=== PATIENT | female | born 1930 | race Caucasian/White ===

== ENCOUNTER 2017-10-09 15:48 | Inpatient (IN) | payer MEDICARE, OTHER ==
[2017-10-09] MEDS ORDERED: Carbidopa/Levodopa 25-100 MG Tab.ER PO PRN (16:17)
[2017-10-09] MEDS: Dextrose 5%-0.45% NaCl 1,000 ML IV SCH (17:00)
[2017-10-09 17:14] LABS: CHLORIDE,CL 106 mmol/L (98-115); SODIUM,NA 142 mmol/L (136-145)
[2017-10-09] MEDS: Carbidopa/Levodopa 25-100 MG Tab.ER PO SCH (20:32)
[2017-10-10] MEDS: Dextrose 5%-0.45% NaCl 1,000 ML IV SCH (03:00)
[2017-10-10] MEDS: Carbidopa/Levodopa 25-100 MG Tab.ER PO SCH ×3 (09:17→18:17)
[2017-10-10] MEDS: Enoxaparin 40 MG/0.4 ML Syringe SUBCUT SCH (10:50)
--- NOTE | 2017-10-10 10:51 | PN ---
10/10/2017 PATIENT NAME: ETHAN SELLERS HISTORY: This 87-year-old female who was recently removed by her family from a long-term care center and lived at home. Was seen by a [facility] provider, ANDRES Escobedo. Yesterday, the son had brought her in due to severe weakness, significant change in her overall condition. [facility] provider had actually seen Ms. Sellers about 5 days prior for [id number] due to a wheelchair for in-home use due to significant problems ambulating. The patient does have significant Parkinson disease. It was noted in the clinic that she does have a rash in her right leg into her groin, inner thigh or leg, which was treated for herpes zoster. Son and the family stated that she had just basically stopped eating and drinking 24 hours prior to her admission. The patient does have a sister who and a which was a couple of days ago. She came into the clinic. She was extremely lethargic. She was actually speaking at that time. She stated she just did not feel well. She looked quite weak with a weak voice, unable to stand, drooling and postural changes, however, no signs and symptoms of a stroke. Denied any increase in pain. No nausea or vomiting. Significant hypothermia on admission with a weakened pulse and it was difficult to actually get a blood pressure reading. She was subsequently transferred by ambulance to [facility] for further evaluation, labs, IV fluids, and warming methods. LABS: The patient's white count is 2.5, hemoglobin 14.6, hematocrit 44.8, platelets 77,000, neutrophilia approximately 75%. Sodium 142, potassium 5.2, BUN 31 with a creatinine 0.78, GFR greater than 60, glucose 90, calcium 9.4, AST slightly elevated at 40, alkaline phosphatase slightly elevated at 127, ALT 21, normal albumin at 3.04. Urinary: Slightly cloudy, small amount of occult blood, many bacteria, up to 20 wbc's. Rasheed catheter was placed. She was started on fluid that on a maintenance solution of D5 and half. PHYSICAL EXAMINATION: VITAL SIGNS: Temperature has improved, however, still low 96.8, on admission it was 86.2. Heart rate 57, blood pressure 110/67, O2 at room air 92%. No oral intake. However, total intake through IV is 1300 in and 1000 out. GENERAL: The patient in a semi-Max position. She is not alert this morning. However, purposeful movement. CV: Bradycardia with a regular rhythm. LUNGS: Clear to auscultation. ABDOMEN: Good bowel tones. NEURO: Essential tremor in her right 4th and 5th digits of her hand. INTEGUMENTARY: Scabbed area appears herpes zoster, inner aspect of her right leg up to her groin. No weeping wounds. GENITOURINARY: Rasheed catheter draining clear yellow urine, however, small amount. IMPRESSION/PLAN: 1. Hypothermia, improved, mild. Continue with warming methods such as IV fluids and warm blankets. 2. Dehydration. Change fluids to D5 normal saline. Continue at 100 mL an hour. 3. Parkinson disease. Change her Sinemet from p.o. to IV and so she is taking orals. 4. Weakness, profound, likely will have to return back to long-term care versus home placement. Will need nutrition. We will encourage p.o. upon more alert status. /[id number]/MODL
[2017-10-10] MEDS: cefTRIAXone 1 GM Vial IVPUSH SCH (11:21)
[2017-10-10] MEDS: Dextrose 5%-0.9% NaCl 1,000 ML IV SCH ×2 (13:09→22:47)
[2017-10-11 08:07] LABS: CHLORIDE,CL 113 mmol/L (98-115); SODIUM,NA 146 mmol/L (136-145)
[2017-10-11] MEDS: Carbidopa/Levodopa 25-100 MG Tab.ER PO SCH ×3 (08:12→18:10)
[2017-10-11] MEDS: Enoxaparin 40 MG/0.4 ML Syringe SUBCUT SCH (08:13)
[2017-10-11] MEDS: Dextrose 5%-0.9% NaCl 1,000 ML IV SCH (08:26)
[2017-10-11] MEDS: cefTRIAXone 1 GM Vial IVPUSH SCH (10:15)
[2017-10-11] MEDS: Dextrose 5%-0.45% NaCl 1,000 ML IV SCH (12:35)
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
[2017-10-12] MEDS: Dextrose 5%-0.45% NaCl 1,000 ML IV SCH ×2 (02:26→16:39)
[2017-10-12] MEDS: Enoxaparin 40 MG/0.4 ML Syringe SUBCUT SCH (08:17)
[2017-10-12] MEDS: Carbidopa/Levodopa 25-100 MG Tab.ER PO SCH ×3 (08:24→17:48)
--- NOTE | 2017-10-12 10:26 | PN ---
10/12/2017 PATIENT NAME: ETHAN YOUNGBLOOD SUBJECTIVE: The patient has no verbal communication, I tried to wake her and arouse her, she did open her eyes slightly and then closed them again. She is very drowsy today, hard to arouse. Nursing staff states yesterday she was actually talking, more coherent than she was in the past, today must be a worse day. OBJECTIVE: VITAL SIGNS: Today, temperature is 98.7, pulse is 94, blood pressure is 151/91, respiratory rate 18, oxygen saturations on room air is 92% to 93%. GENERAL: The patient appears very drowsy, hard to arouse. She is very cachectic looking. This is my patient, who I have seen in the clinic for years, however, I did not hardly recognize her in this condition. LUNGS: Lung sounds are clear, but diminished throughout. ABDOMEN: Soft, nontender, and nondistended. Bowel sounds are present x4. HEART: Tones are distant. Regular rate and rhythm. No murmurs identified. LABORATORY DATA: The patient's lab work today, the patient had a basic metabolic panel which is unremarkable except for her calcium level slightly low at 8.2. IMPRESSION AND PLAN: 1. Altered mental status. The patient is very drowsy today, hard to arouse. Yesterday apparently she was talking to staff. She has been refusing to take her oral medications and eat any food. We will monitor her mental status for now. 2. Hypothermia, resolved. The patient's temperature today is 98.7. We will continue with warmed IV fluids. She is no longer requiring a Yeimi Hugger. 3. Dehydration. Plan, the patient's BUN, creatinine within normal range. She is not taking oral fluids. We will continue with D5W at 100 mL/h. 4. History of Parkinson disease. Plan, the patient does have Sinemet ordered she was to take it home, but she is refusing oral medications at this time. 5. Urinary tract infection. Plan, the patient's urinalysis from the day of admission showed many bacteria. We will continue with Rocephin 1 g daily. 6. DVT prophylaxis. The patient is bedridden at this time. Continue with frequent turns. Lovenox 40 mg subcu daily. OVERALL PLAN: We will have to see how the patient progresses or declines. The patient's sister recently and the patient was very distraught and depressed. She has failure to thrive at this time. /[id number]/MODL MTDD
[2017-10-12] MEDS: cefTRIAXone 1 GM Vial IVPUSH SCH (10:28)
[2017-10-13] MEDS: Dextrose 5%-0.45% NaCl 1,000 ML IV SCH ×2 (06:29→20:32)
[2017-10-13] MEDS ORDERED: Saliva Substitute Oral Spray 120 ML Bottle MUCMEM PRN (07:23)
[2017-10-13] MEDS: cefTRIAXone 1 GM Vial IVPUSH SCH (11:52)
[2017-10-13] MEDS: Enoxaparin 40 MG/0.4 ML Syringe SUBCUT SCH (11:53)
[2017-10-13] MEDS: Carbidopa/Levodopa 25-100 MG Tab.ER PO SCH ×2 (11:56→19:11)
--- NOTE | 2017-10-13 13:46 | PN ---
10/13/2017 PATIENT NAME: ETHAN YOUNGBLOOD SUBJECTIVE: The patient does not arouse to oral cares or verbal cues or even when you shake her. Nursing staff states that at times with care, she will wake up and answer to questions appropriately at times. I even tried a trapezius squeeze today that just maybe a small wince for response. OBJECTIVE: VITAL SIGNS: Today temperature is 98.3, pulse is 71, blood pressure is 137/86, respiratory rate is 20, oxygen saturations are 95%. The patient's I's and O's for yesterday looked like she had 2153 in and only 600 out of her Rasheed catheter. GENERAL: This is an elderly white female who is nonresponsive to verbal or touch. HEART: Tones are distant, but regular rate and rhythm. ABDOMEN: Soft, nontender. Bowel sounds hypoactive, but present. LUNGS: Sounds are diminished throughout lung hendrickson. LABORATORY DATA: No lab work was obtained today. We will order lab work tomorrow morning. IMPRESSION AND PLAN: 1. Altered mental status. The patient still is very drowsy today. She is hard to arouse. She does wake up at times according to staff. I tried oral cares. I tried a trapezius squeeze, told her name and shaking her no, she would not open her eyes today. She is not taking any oral medication. She is not eating any food at this point. We will continue to monitor. 2. Hypothermia, resolved. The patient has been with normal temperature for the last 24 hours, we are going to stop. Warmed IV fluids. We will use the Yeimi Hugger as needed for temperature less than 97.8. Her temperature today is 98.3. 3. Dehydration, resolved. The patient's BUN and creatinine within normal range. We will continue with IV fluids, D5W at 100 mL an hour since she is not taking oral intake. Her I's and O's are plus on the input side, we will have to monitor that. 4. History of Parkinson disease. Plan, the patient does have some in order, but she is not taking oral intake. If she does arouse or wake up, we may give her some sediment if needed. At this time, we will continue to hold it. 5. Urinary tract infection. The patient's urinalysis showed many bacteria. We will continue with Rocephin 1 g daily. 6. DVT prophylaxis. The patient is bed ridden. We will continue with frequent turns along with Lovenox 40 mg subcutaneously daily. OVERALL PLAN: The patient is at the point where we will see if she actually wakes up and progresses or she declines, I am suspecting that the patient is going to slowly decline. The patient's sister recently and the patient was very distraught and depressed with her passing away. The patient does have a failure to thrive at this time. Continue to monitor. /[id number]/MODL
[2017-10-14 08:08] LABS: CHLORIDE,CL 110 mmol/L (98-115); SODIUM,NA 143 mmol/L (136-145)
[2017-10-14] MEDS ORDERED: Furosemide 40 MG/4 ML VIAL IVPUSH ONE (08:46)
[2017-10-14] MEDS: Carbidopa/Levodopa 25-100 MG Tab.ER PO SCH ×3 (09:16→20:06)
[2017-10-14] MEDS ORDERED: Bisacodyl 10 MG Supp RECTAL PRN (09:30)
[2017-10-14] MEDS: Enoxaparin 40 MG/0.4 ML Syringe SUBCUT SCH (10:23)
[2017-10-14] MEDS: Dextrose 5%-0.45% NaCl 1,000 ML IV SCH (10:30)
[2017-10-14] MEDS: cefTRIAXone 1 GM Vial IVPUSH SCH (11:01)
[2017-10-15] MEDS: Dextrose 5%-0.45% NaCl 1,000 ML IV SCH (00:30)
[2017-10-15] MEDS: Carbidopa/Levodopa 25-100 MG Tab.ER PO SCH ×3 (06:27→21:38)
--- NOTE | 2017-10-15 08:48 | PN ---
10/14/2017 PATIENT NAME: ETHAN YOUNGBLOOD SUBJECTIVE: This is an 87-year-old female patient. Today, she actually is awake. She ate some breakfast today. She asked to go on the bed almaguer. She did not have any results on the bed almaguer. She does have a Rasheed catheter in place that is draining clear komal urine. The patient was talkative. She did not remember me. She did answer simple questions. She states that she does want to go home. She denies any pain. She seems very pleasant, not in any distress. OBJECTIVE: VITAL SIGNS: Today, temperature is 98.6, pulse is 65, blood pressure is 133/82, respiratory rate is 18, and oxygen saturation 93% on room air. GENERAL: This is an elderly white female in no acute distress today. Today, she is alert and will talk to you and answer simple questions. HEART: Heart tones are distant, but regular rate and rhythm. LUNGS: Lung sounds are very diminished throughout lung hendrickson, but clear. ABDOMEN: Soft, nontender. Bowel sounds are hypoactive. No pedal edema noted on exam. LABORATORY DATA: The patient's lab work that was obtained today. CBC shows a white count at 4.9, hemoglobin 12.6, and platelet count at 66 which is low. Chemistry panel is unremarkable except for calcium slightly low at 8.3, total protein is low at 5.7, and albumin is low at 2.23. Otherwise, unremarkable. IMPRESSION AND PLAN: 1. Altered mental status. Plan: The patient is usually really drowsy yesterday, she would not wake up. Today, she was awake and answering simple questions. She did not remember me. I have known her for at least five years. She does answer simple questions when I asked her today, she was seeing very pleasant. Nursing staff reports that she can go in out of being alert versus unresponsive. We will continue to monitor the patient's status at this time. 2. Fluid balance. Plan: The patient's BUN and creatinine today are within normal range. The patient's I's and O's over the last four days is plus 4200 mL. I am going to give the patient 20 mg of Lasix IV push today. I know she was dehydrated when she came in. We will continue with D5W at 100 mL an hour since she is not drinking or eating very much at this time. We will continue to do accurate I's and O's, and monitor her fluid balance carefully. 3. History of Parkinson's disease. Plan: The patient has been refusing her medication since Saturday. She does have sediment ordered. I am going to keep it on her med list, so if she does start eating and taking her pills, we will continue with her sediment as ordered. 4. Urinary tract infections. The patient's urinalysis showed many bacteria. We will continue with Rocephin 1 g daily. 5. Deep vein thrombosis prophylaxis. The patient has been bed-ridden. She has not been out of bed. We will continue with frequent turns every 2 hours along with Lovenox 40 mg subcutaneously daily. Overall plan: the patient will not be transferred to long-term care facility today due to no travel advise repeat today. I am not sure if the patient is going to decline or improve at this point. The patient was very distraught and depressed by her sister passing away frequently and she has been refusing to take medications and eat much at all. She does have a failure to thrive. I believe that we [facility] at [facility] time as is and see how she improves or declines. /[id number]/MODL MTDD
[2017-10-15] MEDS ORDERED: Sodium Chloride 0.9% 5 ML Syringe FLUSH PRN (09:45)
--- NOTE | 2017-10-15 10:23 | PN ---
10/15/2017 PATIENT NAME: ETHAN YOUNGBLOOD HISTORY: An 87-year-old female was recently removed from her family out of a long-term care center. She had been there for about 18 months. However, she was seen by a [facility] provider initially prior to admission due to severe weakness and hypothermia. The patient was quite lethargic, obtunded with severe dehydration, hypothermia upon admission. However, she has improved greatly, very close to her baseline. She is awaiting placement for long-term [facility]. PHYSICAL EXAMINATION: VITAL SIGNS: This morning, temperature is 96.5, heart rate 55 to 65, blood pressure 134/67, O2 sats on room air 94%. GENERAL: The patient is more alert, conversive this morning. She is sitting up in high Max. She did eat some breakfast of oatmeal this morning which is an improvement, still refusing her Sinemet. LUNGS: Clear to auscultation. No JVD. CV: Regular rate and rhythm. Hypotonic bowel tones. She has slightly edematous legs however, nonpitting. This is not cardiac in nature. INTEGUMENTARY: Healing vesicular scabbed over rash in her thigh from herpes zoster. LABS: Dated October 14, white count 5.9, hemoglobin and hematocrit normal, neutrophils 70%, trending down. Sodium, potassium, BUN, and creatinine normal. BUN and creatinine ratio 20 to 1, calcium 8.3, albumin 2.23. Liver function normal. IMPRESSION/PLAN: 1. Hypothermia. This is now resolved. All warming measures have been discontinued. 2. Altered mental status. The patient is back very close if not to her baseline. 3. Weakness. She will need significant PT and OT at long-term care schlater. 4. Dehydration. Has been having IV, D5 and half at 70, 2000 in, approximately 2000 out. We will discontinue Rasheed catheter to see how she does with oral intake, now that she is more alert. 5. Parkinson's disease. She does have resting essential tremor in her right hand. She is on Sinemet. We will see if she can continue to start taking her orals. OVERALL PLAN: The patient will remain in acute care today. 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 The patient is not a candidate to release back to home as the patient has failed home therapy. She will need extensive nursing home facility for occupational therapy, physical therapy, and safety. Hopefully, we can get her placed tomorrow. /[id number]/MODL
[2017-10-15] MEDS: Enoxaparin 40 MG/0.4 ML Syringe SUBCUT SCH (12:48)
[2017-10-15] MEDS: cefTRIAXone 1 GM Vial IVPUSH SCH (12:49)
[2017-10-16 06:01] VITALS: BP 144/79
[2017-10-16] MEDS: Carbidopa/Levodopa 25-100 MG Tab.ER PO SCH ×2 (06:23→13:27)
[2017-10-16] MEDS ORDERED: Carbidopa/Levodopa 25-100 MG Tab PO PRN (09:24)
[2017-10-16] MEDS: cefTRIAXone 1 GM Vial IVPUSH SCH (10:56)
[2017-10-16] MEDS: Enoxaparin 40 MG/0.4 ML Syringe SUBCUT SCH (10:56)
--- NOTE | 2017-10-16 11:32 | PN ---
10/16/2017 PATIENT NAME: ETHAN YOUNGBLOOD SUBJECTIVE: The patient is sitting up in bed eating her breakfast. She is very alert today. She says that she feels good today. She denies any chest pain, shortness of breath. She denies any pain at all. She states that she is tired of lying in bed. She says that she ate all of her orange, but she really does not like her oatmeal. She remembers me finally. She did not remember me the other day, but today she remembers seeing me in the clinic multiple times. She is very pleasant today. OBJECTIVE: VITAL SIGNS: Today, temperature is 96.9, pulse is 58, blood pressure is 144/78, respiratory rate 18, oxygen saturations on room air is 96%. GENERAL: This is an elderly white female in no acute distress. She is alert to place and self. HEART: The heart tones are distant, but regular rate and rhythm. No murmurs identified. LUNGS: Lung sounds are clear in upper lobes, slightly diminished at bilateral bases. ABDOMEN: Soft, nontender, nondistended. Bowel sounds present x4. No pedal edema noted on exam. LABORATORY DATA: The patient's lab work that was obtained two days ago; comprehensive metabolic panel was unremarkable except for albumin was slightly low at 2.23 and total protein was low at 5.7. IMPRESSION AND PLAN: 1. Altered mental status. The patient is really alert. She does remember me today. She is doing much better than she was. She did state to me that her eyes bother her at times, so sometimes when she is laying awake, she just does not open her eyes. She is very pleasant today. She is doing much better. 2. Fluid balance. The patient did get a dose of Lasix 2 days ago. She is putting out clear urine out of her Rasheed catheter. Her I's and O's do seem to be leveling out. The patient's IV fluids were discontinued yesterday now that she is eating and drinking. 3. History of Parkinson disease. We will continue with Sinemet as ordered. I did change the dose of the p.r.n. dose to half a tab of Sinemet as needed for tremors. She did take her medications this morning. 4. Urinary tract infection. The patient's urinalysis showed many bacteria. We will continue Rocephin 1 g daily. 5. DVT prophylaxis. We will continue with Lovenox 40 mg subcu daily. The patient wants to get out of bed today, so I did write an order for her to get up to the chair today to see how this goes. OVERALL PLAN: The patient's son is coming today to see which senior living that the patient will be transferred to. The patient did state she wanted go to [facility] and then she was kind of not sure on her decision. She is starting to eat and drink at this point. She is putting out good urine. She has been talking more. We are going to get her up to the chair today. Hopefully, we can transfer her to a senior living of her and her son's liking today. /[id number]/MODL MTDD
--- NOTE | 2017-10-17 08:12 | DISCH ---
ADMITTING DIAGNOSIS: Altered mental status with severe weakness and vulnerable adult. DISCHARGE DIAGNOSIS: Altered mental status much improved, weakness improved, and dehydration improved. BRIEF HISTORY AND ESSENTIAL PHYSICAL FINDINGS: This is an 87-year-old female patient who originally was at the [facility], but her two sons have brought her home approximately about a year and a half [place] They were unable to take care of her at home. Her appetite was very poor. She was not getting up to walk very much. Recently, her sister had , which made the patient very distraught and depressed, so she was not eating or drinking much. She was brought to the clinic back on 10/09/2017, where she was very drowsy, lethargic, just overall condition had declined. She is severely weak. The patient does have a history of Parkinson disease. The patient also recently had a shingles outbreak. The patient at that time was admitted to the [facility] for further evaluation and treatment. SIGNIFICANT LABS XRAYS AND CONSULTATION FINDINGS: The patient's lab work that was obtained here in the hospital. On admission, the patient's CBC showed a white count low at 2.5, hemoglobin was stable at 14.6, platelet count was low at 77. Chemistry panel that was obtained on admission was unremarkable except for BUN was slightly elevated at 31, alkaline phosphatase was elevated at 127. The patient's urinalysis showed many bacteria. The patient's repeat lab work that was obtained on 10/14/2017 showed improvement. Her CBC showed a white count at 4.9, hemoglobin continued to be stable at 12.6, platelet count had maintained slightly low at 66. Chemistry panel was unremarkable except for calcium slightly low at 8.3, that is not a corrected calcium. Her albumin was low at 2.23, total protein low at 5.7, alk phos is coming back down to normal range at 109. Chest x-ray that was obtained on admission showed no acute process per Radiology. COURSE IN HOSPITAL WITH COMPLICATIONS IF ANY: The patient on admission was very lethargic. She was at times unresponsive to stimuli. She was very dehydrated, very malnutritioned. Throughout the hospital stay, the patient did seem to become more alert. She was found to have a urinary tract infection, which was treated. She was given IV fluids. At time of discharge, she would sit up in the chair and talk and have a conversation with you and she is pretty orientated. She denied any chest pain, shortness of breath, or heart palpitations. Her appetite had improved and she was eating and drinking well. She started taking her medications. CONDITION TREATMENT AND FINAL DISPOSITION ON DISCHARGE AND PROGNOSIS: Condition is stable. Final disposition would be [facility] in [place]. IMPRESSION AND PLAN: 1. Altered mental status. Plan: The patient is back to her baseline. She is alert, oriented, very pleasant, no longer drowsy or lethargic. 2. History of Parkinson disease. She is now back taking her Senimet as ordered previously. She does have a p.r.n. order that she can take as needed for tremors. Urinary tract infection is resolved. The patient received one week of Rocephin 1 g IV daily. OVERALL PLAN: The patient is in agreement with her sons to be discharged to the [facility] in [place], [place]. The patient will be discharged on the only scheduled medication, will be her Sinemet. She does have p.r.n. dose. Otherwise, all her medications will be as needed. We will have physical therapy evaluate the patient for strengthening. /[id number]/MODL MTDD
== END 2017-10-16 15:45 | DRG 948 ==
LOC: KA.MS 16:08
PROVIDERS: ADMIT Physician Assistant Medical; ATTEND Family Medicine
DX: R41.82 Altered mental status, unspecified (principal); N39.0 Urinary tract infection, site not specified; E46 Unspecified protein-calorie malnutrition; T68.XXXA Hypothermia, initial encounter; E86.0 Dehydration; R53.1 Weakness; G20 Parkinson's disease; Z79.899 Other long term (current) drug therapy; Z88.8 Allergy status to other drugs, medicaments and biological substances
CPT/HCPCS: 36415; 51701; 51702; 71045; 80048; 80053; 81001; 85025; 97162-GP; A9270-GY; J0696; J1650; J7042